=== PATIENT | female | born 1995 | race Caucasian/White ===

== ENCOUNTER 2022-10-10 21:48 | Emergency (ER) | payer SELFPAY ==
[~2022-10-10] VITALS: Ht 160 cm; Wt 89.1 kg
[2022-10-10 21:55] VITALS: BP 117/81
[2022-10-11] MEDS ORDERED: IVER3TAB2 PO (00:14)
== END 2022-10-11 00:22 | disposition home or self-care (01) ==
LOC: ER 21:50
DX: B81.8 Other specified intestinal helminthiases (principal)
CPT/HCPCS: 99283

== ENCOUNTER 2022-11-27 19:05 | Emergency (ER) | payer MEDICAID ==
[~2022-11-27] VITALS: Ht 160 cm; Wt 87.3 kg
[~2022-11-27 19:05] MED LIST: IVER3TAB2 PO
[2022-11-27 19:06] VITALS: BP 119/87
[2022-11-27] MEDS ORDERED: ibuprofen tablet 400 MG TABLET PO ONE (19:45)
[2022-11-27] MEDS ORDERED: ondansetron 4mg rapidly disintigrating tab PO ONE (19:45)
[2022-11-27] MEDS ORDERED: ONDA4TAB12 PO (20:13)
[2022-11-27] MEDS ORDERED: BENZ1LOZ74 PO (20:13)
[2022-11-27] MEDS ORDERED: NIRM1TAB PO (20:32)
== END 2022-11-27 20:43 | disposition home or self-care (01) ==
LOC: ER 19:06
DX: U07.1 COVID-19 (principal); J02.9 Acute pharyngitis, unspecified; Z91.040 Latex allergy status; Z88.2 Allergy status to sulfonamides
CPT/HCPCS: 87811; 99283